=== PATIENT | male | born 1960 | race Caucasian/White ===

== ENCOUNTER → 2020-11-27 07:57 | Outpatient (CLI) | payer OTHER, MEDICAID, SELFPAY ==
--- NOTE | 2020-11-27 | DI.US.S_ITS ---
PROCEDURE: US ABDOMEN LIMITED INDICATIONS: RUQ PAIN TECHNIQUE: Real-time focused scanning was performed of the abdomen, with image documentation. COMPARISON: None. FINDINGS: The liver demonstrates normal size. The liver demonstrates generalized moderately increased echogenicity. This decreases ultrasound sensitivity for detection of hepatic masses. Simple appearing cysts are seen, including a 12 mm cyst within the right lobe of the liver posteriorly and a 12 mm cyst seen within the anterior right lobe. There is a complex cyst measuring 3.3 x 2.7 x 2.8 cm within the left lobe of the liver. The main portal vein demonstrates normal size and demonstrates normal appearing, hepatopetal flow. No findings of gallstones or sludge are seen. The gallbladder wall is not thickened, measuring 3 mm or less. No specific pericholecystic fluid is seen. The sonographic Zamora sign is negative. There is no biliary dilatation, the common bile duct measures 5 mm. No significant pancreatic abnormality is seen on these images. IMPRESSION: The gallbladder demonstrates a normal sonographic appearance. No biliary dilatation is seen. 3.3 cm complex cyst seen within the left lobe of the liver. Simple appearing liver cysts are also seen. The liver demonstrates increased echogenicity. This finding is nonspecific, yet it is most commonly attributed to fatty infiltration. Dictated by: Arnoldo Phan M.D. on 11/27/2020 at 9:46 Approved by: Arnoldo Phan M.D. on 11/27/2020 at 9:47
== END ==
PROVIDERS: PCP Family Medicine; Referring Provider Family Medicine; Visit Provider Family Medicine
DX: R10.11 Right upper quadrant pain (principal); K76.89 Other specified diseases of liver
CPT/HCPCS: 76705

== ENCOUNTER → 2022-09-16 15:41 | Outpatient (CLI) | payer OTHER, MEDICAID, SELFPAY ==
[2022-09-16 16:31] LABS: COVID19 -Nasal RAPID Negative (Negative)
== END ==
PROVIDERS: PCP Family Medicine; Visit Provider Surgery
DX: Z20.822 Contact with and (suspected) exposure to COVID-19 (principal); Z01.812 Encounter for preprocedural laboratory examination
CPT/HCPCS: 87635; C9803

== ENCOUNTER 2022-09-17 10:57 | Day surgery (SDC) | payer OTHER, MEDICAID, SELFPAY ==
--- NOTE | 2022-09-17 | PATH_ITS ---
[facility] Accession Number: [id number] No. of containers..01 Tissue . 01 Material submitted: . gastrointestinal site - ANTRUM AND GE JUNCTION . 01 Diagnosis: Antrum and Gastroesophageal Junction, Biopsy: Squamous and columnar mucosa with mild chronic inflammation. Negative for Helicobacter by immunohistochemistry. Negative for intestinal metaplasia. Negative for dysplasia and malignancy. [facility] 09/22/2022 1713 Local . 01 Electronically signed: . Xuan Nicolas MD, Pathologist NPI- [id number] . 01 Gross description: . ANTRUM AND GE JUNCTION: Received in formalin are multiple fragment(s) of amanda, soft tissue measuring 1.2 x 0.3 x 0.1 cm in aggregate submitted entirely in 1 cassette(s) /CPE 09/18/2022 0625 Local . 01 Microscopic: . An immunohistochemical stain was performed to evaluate for Helicobacter organisms and is negative. The control stain showed appropriate reactivity. . * This test was developed and its performance characteristics determined by [facility]. It has not been cleared or approved by the U.S. Food and Drug Administration. The FDA has determined that such clearance or approval is not necessary. This test is used for clinical purposes. It should not be regarded as investigational or for research. . 01 Pathologist provided ICD-10: R13.10 . 01 CPT . 264288, B08294 Specimen Comment: A courtesy copy of this report has been sent to [phone] Performed at: 01 [facility] [address] [place] [address] [id number] MD Je Watson MD Phone: [phone]
[2022-09-17 11:22] VITALS: BP 141/88; PULSE 89; RESP 16; TEMP 37; O2SAT 97; BMI 32.1
[2022-09-17] MEDS: LACTATED RINGERS 1,000 ML 42 ML IV (11:33)
[2022-09-17 11:43] VITALS: BMI 32.1
--- NOTE | 2022-09-17 12:32 | PM.HP.1 ---
History of Present Illness History of Present Illness Date Patient Seen: 09/17/22 Time Patient Seen: 12:32 Chief complaint: EGD Narrative: José is here for his EGD. The office note from July for details. No changes since then. Patient History Medical History (Updated 09/17/22 @ 11:16 by Esteban Barboza, RN) Allergic rhinitis Arthritis Male erectile disorder Mixed hyperlipidemia Surgical History History of ankle surgery Family & Social History Social History: household members significant other Tobacco & Substance use: Smoking Status Never smoker alcohol intake current alcohol intake frequency holiday/special occasion Substance Use Type marijuana Meds Home Medications and Allergies Home Medications Medication Instructions Recorded Confirmed Type multivitamin 1 tab PO DAILY 07/15/22 07/15/22 History Advil See Rx Instructions .Route .COMPLEX 09/17/22 09/17/22 History Allergies Allergy/AdvReac Type Severity Reaction Status Date / Time No Known Drug Allergies Allergy Verified 09/17/22 10:51 Exam Vital Signs (past 8 hours): - 09/17/22 11:22 Temperature 98.6 F Pulse Rate 89 Respiratory Rate 16 Blood Pressure 141/88 H Pulse Oximetry 97 Oxygen Delivery Method Room Air Oxygen Delivery Method Room Air Const General: healthy appearing Assessment & Plan Assessment and plan (1) Dysphagia: Qualifiers: Dysphagia type: esophageal phase Qualified Code(s): R13.19 - Other dysphagia Status: Acute Plan 62-year-old man with dysphagia here for EGD. We reviewed the risks and benefits and he would like to proceed. Time Spent With Patient Critical Care time: I spent a total of [] minutes of critical care time on this patient's care today; this time is exclusive of procedural time.
--- NOTE | 2022-09-17 13:05 | PM.OP.EGD ---
Operative Date/Time/Diagnoses Date of procedure: 09/17/22 Time of procedure: 13:05 Pre-op diagnosis: Dysphagia Post-op diagnosis: same Procedure & Clinicians Study performed: Esophagogastroduodenoscopy Same procedure as scheduled: Yes Surgeon: Brian Singh Procedure Notes Procedure in detail: Surgeon: Brian Singh MD Anesthesia: Sofia Jurado CRNA A timeout was performed. A bite blocked was placed. The patient was positioned in the left lateral decubitus position. Anesthesia was administered. The endoscope was inserted through the bite block and passed through the esophagus and stomach and into the duodenum. The duodenal mucosa appeared normal. The scope was withdrawn into the duodenal bulb and no abnormalities were seen. The scope was withdrawn into the stomach. There was mild antritis and random biopsies were taken from the antrum. The rest of the stomach was normal. The scope was retroflexed and no hiatal hernia was seen. The scope was withdrawn into the esophagus and no stricture was seen however there was some mild inflammation near the GE junction and biopsies were taken.. The remainder of the esophagus was normal. The scope was withdrawn. The patient was awakened and brought to recovery. Sedation time: 7 minutes Findings: Mild antritis and mild distal esophagitis
[2022-09-17 13:08] VITALS: BP 85/60; PULSE 81; RESP 18; TEMP 36.3; O2SAT 98
[2022-09-17 13:10] VITALS: BP 97/69; PULSE 81; RESP 14; O2SAT 94
[2022-09-17 13:20] VITALS: BP 103/72; PULSE 77; RESP 18; TEMP 36.6; O2SAT 96
[2022-09-17 13:26] VITALS: BP 122/97; PULSE 82; RESP 18; TEMP 36.6; O2SAT 94
== END 2022-09-17 13:46 | disposition home or self-care (01) ==
PROVIDERS: PCP Family Medicine; Referring Provider Surgery; Visit Provider Surgery
PROC: 0DJ08ZZ Inspection of Upper Intestinal Tract, Via Natural or Artificial Opening Endoscopic (ICD-10-PCS; CPT 43235; principal; 2022-09-17 12:00)
DX: R13.10 Dysphagia, unspecified (principal); K29.50 Unspecified chronic gastritis without bleeding; K20.90 Esophagitis, unspecified without bleeding
CPT/HCPCS: 43239; J2704